=== PATIENT | male | born 1975 | race Hispanic/Latino ===

== ENCOUNTER 2024-11-30 14:46 | Emergency (ER) | payer SELFPAY ==
[2024-11-30 14:51] VITALS: BP 139/81
[2024-11-30 15:06] LABS: % Basophils 0.5 % (0-2); % Eosinophils 1.3 % (0-6); % Immature Granulocytes 0.4 % (0-0.5); % Lymphocytes 35.1 % (20.5-51.1); % Monocytes 7.2 % (1.7-9.3); % Neutrophils 55.5 % (42.2-75.2); Absolute Eosinophils 0.1 10^3/uL (0-0.7); Absolute Lymphocytes 2.9 10^3/uL (1.2-3.4); Absolute Monocytes 0.6 10^3/uL (0.1-0.6); Absolute Neutrophils 4.5 10^3/uL (1.4-6.5); Hematocrit 44.1 % (39.0-52.0); Hemoglobin 15.9 g/dL (13.0-18.0); Mean Corp Hgb Conc. 36.1 g/dL (33.0-37.0); Mean Corpuscular Hgb 31.3 pg (27.0-31.0); Mean Corpuscular Volume 86.8 fL (80.0-94.0); Mean Platelet Volume 10.4 fL (7.4-10.4); Nucleated Red Blood Cells % 0 % (-); Platelet Count 290 10^3/uL (130-400); Red Blood Cell Count 5.08 10^6/uL (4.70-6.10); Red Cell Dist. Width 11.8 % (11.5-14.5); White Blood Cell Count 8.2 10^3/uL (4.8-10.8)
[2024-11-30 15:22] LABS: ALT (SGPT) 89 U/L (0-50); AST (SGOT) 44 U/L (17-59); Albumin 4.6 g/dl (3.5-5.0); Alkaline Phosphatase 85 U/L (38-126); Blood Urea Nitrogen 15 mg/dl (9-20); Calcium 9.3 mg/dl (8.4-10.2); Carbon Dioxide 32 mmol/L (22-30); Chloride 100 mmol/L (98-107); Glucose 103 mg/dl (70-99); Lipase 86 U/L (23-300); Potassium 4.1 mmol/L (3.5-5.1); Sodium 139 mmol/L (135-145); Total Bilirubin 0.8 mg/dl (0.2-1.3); Total Protein 7.8 g/dl (6.3-8.2); eGFR > 60.00
--- NOTE | 2024-11-30 15:24 | ED.GENMED ---
History of Present Illness
General
Chief Complaint: Abdominal Symptoms
Source: patient
Exam Limitations: none
Time Seen by Provider: 11/30/24 15:17
Nursing documentation reviewed up to this point in time: agreed with
History of Present Illness
History of Present Illness:
Patient presents to ED secondary to persistent lower abdominal pain over the past 2 weeks. Denies fever. Abdominal pain, worse with meals, without vomiting or diarrhea. Denies fever. Denies sick contact. Denies difficulty with urination.
Past History
Past History
ED Past Medical History: None
Social History
Tobacco: Non-smoker
Alcohol: Occasional
Review of Systems
Review of Systems
Allergies reviewed?: Yes
All Other Systems: ROS reviewed and negative except as documented in HPI and ROS
Constitutional: Reports no symptoms; Denies fever
Cardiac: Reports no symptoms
ABD/GI: Reports abdominal pain; Denies vomiting or diarrhea
Musculoskeletal: Reports no symptoms
Neurological: Reports no symptoms
Phy Exam
Physical Exam
Physical Exam:
Physical Exam
General: mild distress, not acutely ill. afebrile
Head: nc/at. eomi
Neck: supple. normal range of motion.
Heart: s1/s2 regular rate and rhythm, no murmur. equal radial pulses.
Lungs: no acute respiratory distress. clear bilaterally
Abdomen: normal bowel sounds. no distention. mild lower abdominal tenderness to palpation, L>R
Neuro: alert and oriented x 3. no focal neurological deficits
Skin: no rash
Psychiatric: well kept. interactive and cooperative
Extremities: no edema. no calf tenderness.
Course
Orders/Labs/Results
Orders:
Orders
11/30/24 14:59
Complete Blood Count/With Diff Urgent
Comprehensive Metabolic Panel Urgent
Lipase Urgent
11/30/24 15:22
Iohexol [Omnipaque] See Protocol PO NOW STA
11/30/24 15:23
CT Abd/pel W Iv And Oral Contr Urgent
Comment:
Reason For Exam: lower abdominal pain
0.9% Sodium Chloride 1000 ml [Nss] 1,000 ml IV BOLUS
11/30/24 15:26
Pantoprazole [Protonix IV] 40 mg IV NOW STA
11/30/24 18:44
Urinalysis Reflex To Culture Urgent
Date Specimen was Collected: 11/30/24
Time Specimen was Collected: 14:51
Urine Microscopic Reflex Cult Urgent
Abnormal Lab Results
11/30/24 11/30/24
14:59 18:44
MCH 31.3 H pg
(27.0-31.0)
Carbon Dioxide 32 H mmol/L
(22-30)
Creatinine 1.4 H mg/dL
(0.7-1.3)
Glucose 103 H mg/dl
(70-99)
ALT 89 H U/L
(0-50)
Ur Occult Blood Reflex 1+ A
(Negative)
11/30/24 14:59
11/30/24 14:59
Vital Signs
Initial and Last Documented VS:
Initial Vital Signs
Temp Pulse Resp Pulse Ox
98.2 F 73 16 97
11/30/24 14:48 11/30/24 14:48 11/30/24 14:48 11/30/24 14:48
Last Documented Vital Signs
Temp Pulse Resp BP Pulse Ox
98.2 F 86 16 137/76 96
11/30/24 14:48 11/30/24 19:08 11/30/24 19:08 11/30/24 19:08 11/30/24 19:08
MDM/Problems Addressed
MDM/Problems Addressed:
Patient with an unremarkable workup in ED, including blood work and CT scan abdomen pelvis. In addition, patient remains afebrile, hemodynamically stable, and nontoxic-appearing. As patient is currently uninsured without primary care physician,
patient will be referred to [facility] for continual outpatient evaluation.
*Critical Care Note
Total Time (30-74mins, 75-104mins- exclusive of procedures): Not Applicable
ED Attending Note
-
Portions of this chart may have been created with voice recognition software.� Occasional wrong word or��sound alike� substitutions may have occurred due to the inherent limitations of voice recognition software.
Discharge Plan
Departure
Patient Disposition: Home (Routine Discharge)
Date of Disposition: 11/30/24
Time of Disposition: 19:01
Patient with high blood pressure during this ER visit?: Yes
Discharge Problem:
Abdominal pain
Instructions: Abdominal Pain
Prescriptions:
No Action
ondansetron 8 mg tablet,disintegrating
8 mg PO TID PRN (Reason: nausea and vomiting) Qty: 20 0RF
oxycodone 5 mg tablet
5 mg PO Q4H PRN (Reason: Pain) Qty: 10 0RF
sucralfate [Carafate] 1 gram tablet
1 g PO QID Qty: 60 0RF
pantoprazole [Protonix] 40 mg tablet,delayed release (DR/EC)
40 mg PO BID Qty: 30 0RF
Referrals:
[facility] [Outside]
NONE,* [Family Provider] -
Activity Restrictions/Additional Instructions:
As discussed, please follow-up with referred [facility] for reevaluation.
Interventions
Interventions:
*Risk Screen - Suicide Last Done: 11/30/24 14:48
*General Assessment Last Done: 11/30/24 15:43
*Neglect/Abuse Screening Last Done: 11/30/24 14:48
*ED COVID-19 Vaccine History Last Done: 11/30/24 15:43
*Nursing Disposition Last Done: 11/30/24 19:19
[facility]fk[facility] Assessment Last Done: 11/30/24 15:43
Discharge Date and Time
Discharge Date/Time: 11/30/24 19:20
Print Language: YAKUT
[2024-11-30] MEDS: NSS 1000 IV (15:38)
[2024-11-30] MEDS: PROTONIX IV 40 MG IV (15:38)
[2024-11-30] MEDS: OMNIPAQUE 50 ML PO (15:39)
[2024-11-30 19:02] LABS: Urine Albumin Negative (Neg - Trace); Urine Bilirubin Negative (Negative); Urine Character Clear (Clear); Urine Glucose Negative (Negative); Urine Ketone Negative (Negative); Urine Leukocyte Negative (Negative); Urine Nitrite Negative (Negative); Urine Occult Blood 1+ (Negative); Urine Specific Gravity 1.005 (<1.030); Urine Urobilinogen Negative (Neg - 1+)
[2024-11-30 19:08] VITALS: BP 137/76
[2024-11-30 19:17] LABS: Urine Color Straw
[2024-11-30 19:18] LABS: Urine Red Blood Cell 0-2 /HPF (0-2); Urine Squamous Cell 0-2 /LPF (Few); Urine White Cell 0-2 /HPF (0-5)
== END 2024-11-30 19:20 | disposition home or self-care (01) ==
LOC: EMR 14:46
PROVIDERS: Emergency Medicine; EMERGENCY PHYSICIAN Emergency Medicine
DX: R10.30 Lower abdominal pain, unspecified (principal); Z59.71 Insufficient health insurance coverage
CPT/HCPCS: 99284; 96374; 96361; 74177; 80053; 81003; 81015; 83690; 85025; Q9967